=== PATIENT | female | born 1985 | race Caucasian/White ===

== ENCOUNTER → 2023-11-04 14:58 | Outpatient (REF) | payer OTHER, SELFPAY | LOC: HWRAD 14:58 | PROVIDERS: ATTENDING PHYSICIAN Obstetrics & Gynecology; FAMILY PHYSICIAN Family Medicine | DX: N92.0 Excessive and frequent menstruation with regular cycle (principal); N94.10 Unspecified dyspareunia | CPT/HCPCS: 76830; 76856 ==